=== PATIENT | female | born 1985 | race Caucasian/White ===

== ENCOUNTER 2019-09-23 09:14 | Outpatient (RCR) | payer OTHER, SELFPAY ==
[2019-09-23 10:50] LABS: Hematocrit 27.7 % (37.0-47.0); Hemoglobin 9.7 g/dL (12.0-15.0)
[2019-09-23 11:04] LABS: Glucose 1 Hour PP 50gm Dose 93 mg/dL
[2019-09-26 13:34] LABS: Rapid Plasma Reagin Non-Reactive (NonReactive)
[2019-09-26] MEDS: RHO(D) IMMUNE GLOBULIN 300 MCG SYRINGE IM (16:38)
== END 2019-12-22 23:59 | disposition home or self-care (01) ==
LOC: ANHLAB 09:14
PROVIDERS: Visit Provider Obstetrics & Gynecology
DX: Z36.89 Encounter for other specified antenatal screening (principal); Z29.13 Encounter for prophylactic Rho(D) immune globulin; O36.0990 Maternal care for other rhesus isoimmunization, unspecified trimester, not applicable or unspecified; Z3A.00 Weeks of gestation of pregnancy not specified
CPT/HCPCS: 36415; 82947; 85014; 85018; 85461; 86592; 90384; 96372; J2790

== ENCOUNTER 2019-10-07 11:24 | Outpatient (CLI) | payer OTHER, SELFPAY ==
[2019-10-07 12:16] LABS: Alanine Aminotransferase 10 U/L (4-35); Albumin Level 3.8 g/dL (3.5-5.1); Alkaline Phosphatase 193 U/L (38-126); Aspartate Amino Transferase 22 U/L (14-36); Bilirubin,Total 0.2 mg/dL (0.2-1.3); Blood Urea Nitrogen 16 mg/dL (7-17); Carbon Dioxide 20 mmol/L (22-30); Chloride 109 mmol/L (98-107); Estimated Glomerular Filt Rate > 60; Glucose 79 mg/dL (65-105); Sodium 137 mmol/L (137-145)
[2019-10-07 12:50] LABS: HIV 1/2 Ab P24 Ag Result Negative (Negative)
== END 2019-10-07 11:25 | disposition home or self-care (01) ==
LOC: ANHLAB 11:27
PROVIDERS: Visit Provider Obstetrics & Gynecology
DX: Z36.89 Encounter for other specified antenatal screening (principal); Z3A.00 Weeks of gestation of pregnancy not specified
CPT/HCPCS: 36415; 80053; 86703; G0432

== ENCOUNTER 2019-10-19 17:23 | Observation (INO) | payer OTHER, SELFPAY ==
[2019-10-19 17:45] VITALS: BP 105/65; PULSE 94
--- NOTE | 2019-10-19 17:49 | OBADM ---
This patient, Paulette Selby, admitted to the OB room OB Post 115 for observation. Patient/family oriented to hospital policies and general routines including ID bracelet, bed and alarms, visiting hours, pain management, procedures, bathroom and other care routines, personal items, smoking policy, room service/diet, and visiting hours. Patient/Family are encouraged to report perceived risks to care and to ask questions if they do not understand what they are told or what they should do.
[2019-10-19 18:00] VITALS: BP 110/58; PULSE 78
[2019-10-19 18:03] LABS: Basophils Percent Auto 0.3 % (0.2-1.2); Eosinophils Absolute Auto 0.1 K/mm3 (0-0.3); Eosinophils Percent Auto 0.4 % (0-4.4); Hematocrit 28.4 % (37.0-47.0); Hemoglobin 9.8 g/dL (12.0-15.0); Immature Granulocyte Percent A 0.8 % (0-0.5); Lymphocytes Absolute Auto 1.88 K/mm3 (0.9-3.2); Lymphocytes Percent Auto 15.8 % (18.3-44.2); Mean Corpuscular HGB Conc 34.5 g/dl (32-36); Mean Corpuscular Hemoglobin 30.9 pg (26-34); Mean Corpuscular Volume 89.6 fl (80-100); Monocytes Absolute Auto 0.7 K/mm3 (0.1-0.6); Monocytes Percent Auto 6.2 % (2.6-8.5); Neutrophils Absolute Auto 9.1 K/mm3 (1.3-6.7); Neutrophils Percent Auto 76.5 % (45.5-73.1); Platelet Count Result 268 k/mm3 (150-375); Red Blood Count 3.17 M/mm3 (4.2-5.4); Red Cell Distribution Width 14.2 % (11.5-14.5); White Blood Count 11.9 K/mm3 (4.5-10.0)
[2019-10-19 18:15] VITALS: BP 103/61; PULSE 86
[2019-10-19 18:16] VITALS: BMI 22.6
[2019-10-19 18:18] LABS: Alanine Aminotransferase 10 U/L (4-35); Albumin Level 3.5 g/dL (3.5-5.1); Alkaline Phosphatase 240 U/L (38-126); Anion Gap 12.2 mmol/L (7-16); Aspartate Amino Transferase 18 U/L (14-36); Bilirubin,Total 0.4 mg/dL (0.2-1.3); Blood Urea Nitrogen 15 mg/dL (7-17); Calcium 8.8 mg/dL (8.4-10.2); Carbon Dioxide 14 mmol/L (22-30); Chloride 110 mmol/L (98-107); Estimated CRCL calculation 58 ml/min; Estimated Glomerular Filt Rate > 60; Glucose 113 mg/dL (65-105); Potassium 3.2 mmol/L (3.4-5.0); Sodium 133 mmol/L (137-145)
[2019-10-19 18:30] VITALS: BP 109/65; PULSE 76
[2019-10-19 18:40] LABS: Iron 48 ug/dL (37-170)
[2019-10-19 18:45] VITALS: BP 100/77; PULSE 89
[2019-10-19 18:49] LABS: Percent Iron Saturation 9 % (20-50)
[2019-10-19 19:00] VITALS: BP 103/66; PULSE 82
[2019-10-19 19:18] LABS: Ferritin 8.79 ng/mL (6.24-137)
--- NOTE | 2019-11-16 12:16 | PM.OBTRLD ---
OB - Triage/Final Diagnosis Evaluation Laboratory results: Laboratory Tests 10/19/19 10/19/19 10/19/19 17:53 17:53 17:53 WBC 11.9 H RBC 3.17 L Hgb 9.8 L Hct 28.4 L MCV 89.6 MCH 30.9 MCHC 34.5 RDW 14.2 Plt Count 268 MPV 10.0 Immature Gran % (Auto) 0.8 H Neut % (Auto) 76.5 H Lymph % (Auto) 15.8 L [place] % (Auto) 6.2 Eos % (Auto) 0.4 Baso % (Auto) 0.3 Lymph # (Auto) 1.88 [place] # (Auto) 0.7 H Eos # (Auto) 0.1 Baso # (Auto) 0.0 Abs Immat Gran (auto) 0.10 H Absolute Neuts (auto) 9.1 H Absolute Nucleated RBC 0.0 Nucleated RBC % 0.0 Sodium 133 L Potassium 3.2 L Chloride 110 H Carbon Dioxide 14 L Anion Gap 12.2 BUN 15 Creatinine 1.00 Estim Creat Clear Calc 58 Estimated GFR > 60 Glucose 113 H Calcium 8.8 Iron 48 TIBC 517 H % Saturation 9 L Ferritin 8.79 Total Bilirubin 0.4 AST 18 ALT 10 Alkaline Phosphatase 240 H Total Protein 7.0 Albumin 3.5 Final Diagnosis (1) False labor: Code(s): O47.9 - False labor, unspecified Status: Acute
== END 2019-10-19 19:33 | disposition home or self-care (01) ==
PROVIDERS: Admitting Provider Obstetrics & Gynecology; Visit Provider Obstetrics & Gynecology
DX: O47.9 False labor, unspecified (principal); Z3A.00 Weeks of gestation of pregnancy not specified
CPT/HCPCS: 36415; 80053; 82728; 83540; 83550; 85025; G0378; G0379

== ENCOUNTER 2019-10-31 14:41 | Outpatient (CLI) | payer OTHER, SELFPAY ==
--- NOTE | 2019-10-31 15:31 | PC.NURSE ---
1528- Spoke with Nicole Boone CNM. Patient ROMplus negative, reative NST with irregular contractions. Orders to discharge to home.
[2019-10-31 15:33] VITALS: BP 111/63; PULSE 88
== END 2019-10-31 16:30 | disposition home or self-care (01) ==
LOC: ANHOBOP 15:28 → ANHLDR 15:30
PROVIDERS: Visit Provider Obstetrics & Gynecology
DX: O42.90 Premature rupture of membranes, unspecified as to length of time between rupture and onset of labor, unspecified weeks of gestation (principal); Z3A.00 Weeks of gestation of pregnancy not specified
CPT/HCPCS: 59025; 84112; 99199

== ENCOUNTER 2019-11-03 16:46 | Outpatient (CLI) | payer OTHER, SELFPAY ==
[2019-11-03 17:42] LABS: Basophils Percent Auto 0.3 % (0.2-1.2); Eosinophils Percent Auto 0.4 % (0-4.4); Hematocrit 31.3 % (37.0-47.0); Hemoglobin 10.7 g/dL (12.0-15.0); Immature Granulocyte Absolute 0.07 K/mm3 (0.00-0.031); Immature Granulocyte Percent A 0.8 % (0-0.5); Lymphocytes Absolute Auto 1.76 K/mm3 (0.9-3.2); Lymphocytes Percent Auto 19.7 % (18.3-44.2); Mean Corpuscular HGB Conc 34.2 g/dl (32-36); Mean Corpuscular Hemoglobin 31.5 pg (26-34); Mean Corpuscular Volume 92.1 fl (80-100); Mean Platelet Volume 9.8 fl (7.4-10.4); Monocytes Absolute Auto 0.8 K/mm3 (0.1-0.6); Monocytes Percent Auto 9.3 % (2.6-8.5); Neutrophils Absolute Auto 6.2 K/mm3 (1.3-6.7); Neutrophils Percent Auto 69.5 % (45.5-73.1); Platelet Count Result 253 k/mm3 (150-375); Red Cell Distribution Width 15.1 % (11.5-14.5)
[2019-11-03 17:56] LABS: Alanine Aminotransferase 10 U/L (4-35); Albumin Level 3.5 g/dL (3.5-5.1); Alkaline Phosphatase 198 U/L (38-126); Anion Gap 9.7 mmol/L (7-16); Aspartate Amino Transferase 20 U/L (14-36); Bilirubin,Total < 0.1 mg/dL (0.2-1.3); Blood Urea Nitrogen 19 mg/dL (7-17); Carbon Dioxide 20 mmol/L (22-30); Chloride 109 mmol/L (98-107); Estimated Glomerular Filt Rate > 60; Glucose 74 mg/dL (65-105); Potassium 3.7 mmol/L (3.4-5.0); Sodium 135 mmol/L (137-145)
== END 2019-11-03 16:47 | disposition home or self-care (01) ==
PROVIDERS: Visit Provider Obstetrics & Gynecology
DX: Z34.93 Encounter for supervision of normal pregnancy, unspecified, third trimester (principal); Z3A.00 Weeks of gestation of pregnancy not specified
CPT/HCPCS: 36415; 80053; 85025; 86850; 86880; 86900; 86901; 86902

== ENCOUNTER 2019-11-04 10:40 | Inpatient (IN) | payer OTHER, SELFPAY ==
--- NOTE | 2019-10-31 16:36 | PC.NURSE ---
PATIENT STATES SHE IS A C/S ON 11/04/19--INFORMED PATIENT SHE IS NOT ON THE SCHEDULE AT THIS TIME. PATIENT STATES SHE HAS AN APPOINTMENT WITH DR MOORE ON THURSDAY AND WILL ASK ABOUT THE C/S INSTRUCTED PATIENT IF SHE IS A C/S ,SHE WILL NEED TO GET LABS DRAWN THE DAY BEFORE SURGERY. SHE CAN HAVE NOTHING BY MOUTH AFTER MIDNIGHT THE NIGHT BEFORE SURGERY AND SHE WILL NEED TO BE IN OB 2 HOURS BEFORE SURGERY. PATIENT VERBALIZED HER UNDERSTANDING
[2019-11-04] VITALS (57 sets, daily range): BP systolic 88–125; BP diastolic 54–101; PULSE 52–107; RESP 14–18; TEMP 36.3–36.7; O2SAT 98–100
--- NOTE | 2019-11-04 11:02 | LDADM ---
This patient, Paulette Selby, was admitted to Labor/Delivery/Recovery 120 on 11/04/19 at 10:40. Plans for labor, pain management and were discussed with patient. Patient/family oriented to hospital policies and general routines including ID bracelet, bed and alarms, visiting hours, pain management, procedures, bathroom and other care routines, personal items, smoking policy, room service/diet and guest tray routines, security routines, call light, and visiting hours. Patient/Family are encouraged to report perceived risks to care and to ask questions if they do not understand what they are told or what they should do. See OBIX for further documentation.
[2019-11-04] MEDS: LACTATED RINGERS 1,000 ML 125 ML IV CONT ×2 (11:11→12:06)
--- NOTE | 2019-11-04 11:21 | WPDANESEPPF ---
Anes - Initial Pre Proc Eval Procedure: Operation Date: 11/04/19 12:00 Proposed Procedures p Primary Section - Waldemar Real MD Date/Time: 11/04/19 11:21 Surgeon: Waldemar Real MD Pre Op Diagnosis: C Section Patient Data Age: 33 Gender: F Height: 5 ft 2 in Weight: 59.8 kg Last Vital Signs Pulse 76 11/04/19 11:16 BP 103/60 11/04/19 11:16 Pulse Ox 99 11/04/19 11:17 Allergies Allergy/AdvReac Type Severity Reaction Status Date / Time codeine Allergy Unknown Verified 01/17/15 11:46 ketorolac Allergy Unknown Verified 11/30/15 14:05 latex Allergy Unknown Verified 01/17/15 11:47 Penicillins Allergy Unknown Verified 01/17/15 11:46 Sulfa (Sulfonamide Allergy Unknown Verified 01/17/15 11:46 Antibiotics) tramadol Allergy Unknown Verified 11/30/15 14:05 Chloride Allergy Unknown Uncoded 08/31/14 18:46 COCONUT Allergy Unknown Uncoded 11/30/15 14:05 Home Medications Medication Instructions Recorded Confirmed Type Alive 1 tablet PO DAILY 10/19/19 10/19/19 History magnesium 400 mg PO DAILY 10/19/19 10/19/19 History potassium acetate 2 meq IV ONCE 10/19/19 10/19/19 History Patient hx anesthesia problems: none Family hx anesthesia problems: none PMFSH Past Medical History Medical History (Updated 11/04/19 @ 11:22 by Luis Bedoya MD) Anxiety Chronic back pain Smoker Spinal stenosis Family History Family History Father Hypertension Asthma Chronic obstructive pulmonary disease Sibling Leukemia Social History Social History Smoking packs per day: 0.5 Smoking cigarettes per day: 10.0 Years smoked: 10 Smoking pack-years: 5.00 Smoking status: Current every day smoker Alcohol intake: never Substance use: never Spiritual care concerns: No Anes - Eval Final PreProcedure Day of Procedure 11/04/19 11:21 Patient weight: normal Heart: regular rate and rhythm Lungs: clear to auscultation Airway: Mallampati scale class II Neurological: alert and oriented Last oral intake: >/= 8 hours ASA classification: III Emergent: no Anesthetic plan: proceed Anesthesia type and monitoring: regional spinal Informed Consent: The patient's anesthetic plan and its attendant risks and benefits were discussed with the patient/family/POA. Questions were solicited and answers provided to the satisfaction of the patient/family/POA.
[2019-11-04 12:03] LABS: Amphetamine Screen Urine Negative (Negative); Barbiturate Screen Urine Negative (Negative); Benzodiazepines Screen Urine Negative (Negative); Cannabinoid Screen Urine Positive (Negative); Cocaine Screen Urine Negative (Negative); Methadone Screen Urine Negative (Negative); Opiate Screen Urine Negative (Negative); Phencyclidine Screen Urine Negative (Negative)
[2019-11-04] MEDS: CLINDAMYCIN 900 MG/NS 50 ML 900 MG/50 ML PIGGYBACK 50 MG IVPB (12:06)
--- NOTE | 2019-11-04 12:08 | PM.IMHP ---
H&P: HPI History of Present Illness Date/Time: 11/04/19 12:08 Chief complaint: C Section Narrative: Paulette Selby is a 33 year old female Multiparous at 39 weeks who presents for elective primary delivery due to history of chronic back pain. She has no complaints. She reports good movement. She denies any loss of fluid, vaginal bleeding, contractions. She denies any headache, blurry vision, epigastric pain. She denies any chest pain or shortness of breath. Review of Systems Constitutional: Constitutional: Reports no additional constitutional complaints, Denies fatigue, Denies headache(s), Denies lethargy and Denies weakness Eyes: Eyes: Reports no additional eye complaints, Denies blurry vision and Denies photophobia ENT: Reports as per HPI, Denies headache(s) and Denies neck pain Cardiovascular: Cardiovascular: Denies chest pain, Denies diaphoresis, Denies leg edema, Denies palpitations and Denies dyspnea Respiratory: Respiratory: Denies hemoptysis, Denies dyspnea and Denies wheezing Gastrointestinal: Gastrointestinal: Denies abdominal pain, Denies melena, Denies bloating, Denies hematochezia, Denies nausea and Denies vomiting Genitourinary: Genitourinary: Reports no additional female genitourinary complaints Musculoskeletal: Musculoskeletal: Denies joint swelling, Denies neck pain, Denies numbness and Denies stiffness Neurologic: Denies Abnormal speech present, Denies confusion, Denies headache(s), Denies numbness and Denies weakness Psychiatric: Psychiatric: Denies anxiety, Denies confusion, Denies depression, Denies homicidal ideation and Denies suicidal ideation Endocrine: Endocrine: Denies fatigue and Denies palpitations Allergic/Immunologic: Allergic/Immunologic: Denies wheezing [facility] Past Medical History Medical History (Updated 11/04/19 @ 12:11 by Waldemar Real MD) Anxiety Chronic back pain Smoker Spinal stenosis Family History Family History Father Hypertension Asthma Chronic obstructive pulmonary disease Sibling Leukemia Social History Social History Smoking packs per day: 0.5 Smoking cigarettes per day: 10.0 Years smoked: 10 Smoking pack-years: 5.00 Smoking status: Current every day smoker Alcohol intake: never Substance use: never Spiritual care concerns: No Meds Home Medications and Allergies Home Medications Medication Instructions Recorded Confirmed Type Alive 1 tablet PO DAILY 10/19/19 10/19/19 History magnesium 400 mg PO DAILY 10/19/19 10/19/19 History potassium acetate 2 meq IV ONCE 10/19/19 10/19/19 History Allergies Allergy/AdvReac Type Severity Reaction Status Date / Time codeine Allergy Unknown Verified 01/17/15 11:46 ketorolac Allergy Unknown Verified 11/30/15 14:05 latex Allergy Unknown Verified 01/17/15 11:47 Penicillins Allergy Unknown Verified 01/17/15 11:46 Sulfa (Sulfonamide Allergy Unknown Verified 01/17/15 11:46 Antibiotics) tramadol Allergy Unknown Verified 11/30/15 14:05 Chloride Allergy Unknown Uncoded 08/31/14 18:46 COCONUT Allergy Unknown Uncoded 11/30/15 14:05 Vital Signs Vital Signs - 24 hr 11/04/19 10:57 11/04/19 11:02 11/04/19 11:07 Pulse Rate Blood Pressure Pulse Oximetry 99 99 99 11/04/19 11:12 11/04/19 11:16 11/04/19 11:17 Pulse Rate 76 Blood Pressure 103/60 Pulse Oximetry 98 99 11/04/19 11:22 11/04/19 11:30 Pulse Rate 74 Blood Pressure 113/74 Pulse Oximetry 98 Exam Const: General: healthy appearing, comfortable and no acute distress; No confusion Orientation/consciousness: No confusion Eyes: Direct Ophthalmoscopy: No photophobia Resp: Auscultation: clear to auscultation bilaterally, no rales, no rhonchi and no wheezes Cardio: Rate: regular rate Heart sounds: no click, no murmurs and no rubs GI: Inspection: non-distended GI P
[2019-11-04] MEDS: LACTATED RINGERS 250 ML 999 ML IVPB (12:09)
--- NOTE | 2019-11-04 12:53 | PM.PROC ---
Procedure Note - Detailed Date of procedure: 11/04/19 Pre-op diagnosis: C Section Term gestation, back pain Post-op diagnosis: same Procedure performed: low-transverse delivery Description of procedure: The patient was taken the operating room. She was prepped and draped in the dorsal supine position with leftward tilt after induction of spinal anesthetic. When anesthesia was found to be adequate a low-transverse skin incision was made and carried down to the level the fascia with the knife. The fascial incision was made at the midline with a scalpel. The fascial incision was extended laterally with Michael scissors. The fascia was tented upward superior and inferior with Swetha clamps. The rectus muscles were dissected off bluntly. The rectus muscles at the midline. The preperitoneal fat was dissected bluntly at the superior aspect of the separate the rectus muscles. The peritoneal cavity was entered bluntly in the same area. The peritoneal incision was extended superior and inferior with good visualization of bladder. Bladder blade was inserted. A low-transverse incision was made on the uterus with the scalpel. It was carried down the level of the amniotic cavity with a knife. The amniotic cavity bluntly. The uterine incision was made laterally with blunt traction. The was delivered. The cord was clamped and cut. The was handed off to waiting pediatric staff. Cord bloods were obtained. The placenta was removed manually. The uterus was exteriorized. Uterus cleared of all clots and debris. Uterus closed in 0 Vicryl in a running locked fashion. An imbricating layer of 0 Vicryl was also placed on the to bolster the closure. The uterus was returned to the abdomen. The gutters were cleared of all clots and debris. The fascia was closed 0 Vicryl in a running fashion. Subcutaneous tissue was irrigated and bleeding areas were cauterized. The skin was closed with subcuticular absorbable leonidas. The incision was covered with derma campbell. The patient tolerated the procedure well. She was taken recovery room stable condition. Sponge, lap, needle counts were correct x2. Anesthesia: spinal Surgeon: Waldemar Real MD Estimated blood loss (mL): 450 Drains: No Packing: No Pathology: none sent Complications: No immediate complications Condition: stable Disposition: floor Findings: Normal maternal anatomy. Average size with normal Apgars.
[2019-11-04] MEDS: LORATADINE 10 MG TABLET PO (13:21)
[2019-11-04] MEDS: diphenhydrAMINE HCl INJ 50 MG/ML VIAL 25 MG IV PUSH (13:21)
[2019-11-04] MEDS: OXYTOCIN 30 UNITS/NS 500 ML 30 UNITS/500 ML BAG 125 UNITS IV CONT (13:52)
--- NOTE | 2019-11-04 16:22 | PC.NURSE ---
DCFS called RN at 1421 to inform of an open case. Lonijose Lester will come to [facility] to discuss case with parents.
--- NOTE | 2019-11-04 16:38 | PCCCNOTE ---
Care Coordination. Pt. referred to CC for open DCFS case. 15:30 Received call from pt[facility]s [facility] case management specialist, Tamika Benavides, . She called in DCFS report on baby. DCFS income tax investigator, Ashleighcassi Lester, intake ID ([id number]) came out to see pt. Per RN, Vidya and Sameera, DCFS plans to take custody of baby at discharge. There was discussion of baby being discharged on Thursday or Thursday. Per [place] worker, there is a family in place (pt.'s brother and sister in law) to take , but they do live a few hours away. When baby is discharged, CC will call DCFS Hotline per DCFS instruction for worker to facilitate placement for . Tamika, [facility] case management specialist, also aware infant may discharge Thursday or Thursday. Per Tamika, pt. and FOB have not been complaint with their treatment plan. She reports FOB with history of meth use and mother with benzo's during . Mother has been evasive with giving UDS for testing throughout or for DCFS. Tamika also reports that pt. didn't start care until 34 weeks. Will follow
[2019-11-04] MEDS: DOCUSATE SODIUM 100 MG CAPSULE PO (17:44)
[2019-11-04] MEDS: IBUPROFEN 600 MG TABLET PO ×2 (17:45→22:56)
[2019-11-04] MEDS: DEXTROSE 5%/0.45% SOD CHL 1,000 ML 125 ML IV CONT (18:11)
--- NOTE | 2019-11-04 19:01 | PC.NURSE ---
1550 pt admitted to room 285 per stretcher from labor and delivery after primary delivery of viable male infant at [address] Real. Mother is a and is bottle feeding . FOB present. Pt's VSS and assessment WNL. Pt oriented to room. She appears to be in stable condition.
[2019-11-05 04:58] LABS: Basophils Percent Auto 0.2 % (0.2-1.2); Hematocrit 30.8 % (37.0-47.0); Hemoglobin 10.2 g/dL (12.0-15.0); Immature Granulocyte Absolute 0.12 K/mm3 (0.00-0.031); Immature Granulocyte Percent A 0.7 % (0-0.5); Lymphocytes Absolute Auto 1.83 K/mm3 (0.9-3.2); Mean Corpuscular HGB Conc 33.1 g/dl (32-36); Mean Corpuscular Volume 93.6 fl (80-100); Mean Platelet Volume 10.4 fl (7.4-10.4); Monocytes Absolute Auto 1.2 K/mm3 (0.1-0.6); Monocytes Percent Auto 6.5 % (2.6-8.5); Neutrophils Percent Auto 82.6 % (45.5-73.1); Platelet Count Result 243 k/mm3 (150-375); Red Blood Count 3.29 M/mm3 (4.2-5.4); White Blood Count 18.2 K/mm3 (4.5-10.0)
[2019-11-05] MEDS: IBUPROFEN 600 MG TABLET PO ×3 (05:56→20:06)
[2019-11-05] MEDS: SIMETHICONE 80 MG TAB.CHEW PO ×6 (05:58→23:44)
--- NOTE | 2019-11-05 07:16 | WPDANLDPN2 ---
Anes-Prog Note L&D Date/Time: 11/05/19 07:16 Comfortable throughout: section Neuraxial method: spinal Epidural/Spinal procedure site: clean & non-tender Neuro status: Neuro function grossly intact. Cardiovascular status: normal Respiratory status: normal Airway patency: baseline Mental status: baseline Post-Op hydration status: normal Vital Signs: Last Vital Signs Temp 36.3 C L 11/04/19 22:35 Pulse 53 L 11/04/19 22:35 Resp 18 11/04/19 22:35 BP 102/54 L 11/04/19 22:35 Pulse Ox 100 11/04/19 22:35 I/O: Intake & Output 11/04/19 11/04/19 11/05/19 15:59 23:59 07:59 Intake Total 2050 240 300 Output Total 235 1350 1150 Balance [id number] -[id number] -[id number] Post-procedural complaints: none Patient feedback: Patient satisfied with anesthetic care.
--- NOTE | 2019-11-05 07:16 | WPDANLDNPN2 ---
Anes-Prog Note L&D-Neuraxial Date/Time: 11/05/19 07:16 Neuraxial medications: intrathecal PF morphine Opiod-related complaints: none Patient feedback: Patient satisfied with post-operative pain management.
--- NOTE | 2019-11-05 07:45 | PC.NURSE ---
PT introductions made and plan of care discussed per post op c section, pain management, bottle feeding, daily care activities. PT verbalized understanding of such care.
--- NOTE | 2019-11-05 08:52 | P.PNOB_ITS ---
OB - PN: Subj Subjective Date/time seen: 11/05/19 08:52 Patient comments: incisional pain [place] baby status: doing well feeding status: exclusively bottle feeding OB - PN: Obj Data Labs CBC & Chem 7: 11/05/19 04:49 Labs: Laboratory Results - last 24 hr 11/04/19 11/05/19 11:34 04:49 WBC 18.2 H RBC 3.29 L Hgb 10.2 L Hct 30.8 L MCV 93.6 MCH 31.0 MCHC 33.1 RDW 15.0 H Plt Count 243 MPV 10.4 Immature Gran % (Auto) 0.7 H Neut % (Auto) 82.6 H Lymph % (Auto) 10.0 L [place] % (Auto) 6.5 Eos % (Auto) 0.0 Baso % (Auto) 0.2 Lymph # (Auto) 1.83 [place] # (Auto) 1.2 H Eos # (Auto) 0.0 Baso # (Auto) 0.0 Abs Immat Gran (auto) 0.12 H Absolute Neuts (auto) 15.0 H Absolute Nucleated RBC 0.0 Nucleated RBC % 0.0 Urine Opiates Screen Negative Urine Methadone Screen Negative Ur Barbiturates Screen Negative Ur Phencyclidine Scrn Negative Ur Amphetamine Screen Negative U Benzodiazepines Scrn Negative Urine Cocaine Screen Negative U Cannabinoids Screen Positive A OB - PN A/P Plan day: 1 Plan: routine care Time Spent With Patient Time: Total time spent is greater than 50% in coordination of care (as documented) at patient's floor/unit and/or counseling patient: Exam Const: Other: tearful due to incisional pain, time for medication Resp: Effort & Inspection: normal respiratory effort Psych: Appearance: grossly normal Affect: normal affect Attitude: cooperative Judgement: Good judgement present (Psych)
[2019-11-05 09:40] VITALS: BP 114/60; PULSE 67; RESP 18; TEMP 37.1; O2SAT 100
[2019-11-05] MEDS: DOCUSATE SODIUM 100 MG CAPSULE PO ×2 (09:40→17:21)
[2019-11-05] MEDS: NICOTINE (*PBKC) 14 MG PATCH 1 PATCH TRANSDERM (09:42)
[2019-11-05] MEDS: TETANUS,DIPHTHERIA,AC PERTUSSIS ADULT (0.5 ML) BOOSTRIX IM (17:23)
[2019-11-05 18:41] VITALS: BP 126/73; PULSE 73; RESP 18; TEMP 36.5; O2SAT 99
--- NOTE | 2019-11-05 20:14 | PC.NURSE ---
2009 on 11/05/19. Mother states her significant other is having visitation with her son and plans to be her this evening. Paulette asked me if he is permitted to come up through the evening and I said yes.
[2019-11-06] MEDS: SIMETHICONE 80 MG TAB.CHEW PO ×5 (03:56→23:17)
[2019-11-06] MEDS: IBUPROFEN 600 MG TABLET PO ×3 (03:56→18:31)
[2019-11-06] MEDS: DOCUSATE SODIUM 100 MG CAPSULE PO ×2 (08:27→15:56)
[2019-11-06] MEDS: NICOTINE (*PBKC) 14 MG PATCH 1 PATCH TRANSDERM (08:29)
[2019-11-06 08:30] VITALS: BP 115/63; PULSE 85; RESP 18; TEMP 36.8; O2SAT 100
--- NOTE | 2019-11-06 08:30 | PC.NURSE ---
Pt introductions made and plan of care discussed per post op c section, pain management, daily care activities, bottle feeding. PT verbalized understanding of such care.
--- NOTE | 2019-11-06 09:16 | P.PNOB_ITS ---
OB - PN: Subj Subjective Date/time seen: 11/06/19 09:16 Patient comments: no complaints baby status: doing well [place] feeding status: exclusively bottle feeding OB - PN: Obj Data Labs CBC & Chem 7: 11/05/19 04:49 OB - PN A/P Plan day: 2 Plan: routine care Time Spent With Patient Time: Total time spent is greater than 50% in coordination of care (as documented) at patient's floor/unit and/or counseling patient: Exam Const: General: comfortable Resp: Effort & Inspection: normal respiratory effort Psych: Appearance: grossly normal Affect: normal affect Attitude: cooperative Judgement: Good judgement present (Psych)
[2019-11-06 18:34] VITALS: BP 138/76; PULSE 78; RESP 18; TEMP 36.6
--- NOTE | 2019-11-06 23:16 | PC.NURSE ---
2100 11/06/2019 Patient viewed the discharge video Mother & Baby Care, The First Two Weeks . Patient was given the opportunity and encouraged to ask questions. Patient verbalized understanding of information shared and has been given the mother/baby guide for home reference.
[2019-11-07] MEDS: IBUPROFEN 600 MG TABLET PO ×2 (02:44→09:08)
[2019-11-07] MEDS: SIMETHICONE 80 MG TAB.CHEW PO ×2 (02:45→07:36)
[2019-11-07] MEDS: DOCUSATE SODIUM 100 MG CAPSULE PO (07:36)
[2019-11-07] MEDS: NICOTINE (*PBKC) 14 MG PATCH 1 PATCH TRANSDERM (07:37)
--- NOTE | 2019-11-07 07:48 | PM.OBPNVD ---
OB - PN: Subj Subjective Date/time seen: 11/07/19 07:48 Patient comments: no complaints, pain well controlled, incisional pain, tolerating diet and flatus present OB - PN: Obj Data Labs CBC & Chem 7: 11/05/19 04:49 OB - PN A/P Plan day: 3 Plan: routine care, discharge home and other Comments: Incision check in one week. Given precautions Time Spent With Patient Time: Total time spent is greater than 50% in coordination of care (as documented) at patient's floor/unit and/or counseling patient: Exam Const: General: comfortable, no acute distress and alert Resp: Effort & Inspection: normal respiratory effort Auscultation: no crackles, no rales and no rhonchi Cardio: Rate: regular rate Heart sounds: no click, no murmurs and no rubs GI: Inspection: non-distended GI Palp: No Tenderness to palpation present (GI) Auscultation: normal bowel sounds Other: Incision - CDI Extrem: General: normal to inspection, no pedal edema and no calf tenderness
--- NOTE | 2019-11-07 07:48 | PM.OBDSVD ---
DS: Admitting Diagnosis Admitting Diagnosis Admitting Diagnosis: Encounter for supervision of normal , unspecified, unspecified trimester DS: Discharge Diagnosis Discharge Diagnosis (1) Delivery by elective section: Code(s): O82 - Encounter for delivery without indication Status: Acute (2) Term : Code(s): Z34.90 - Encounter for supervision of normal , unspecified, unspecified trimester Status: Acute OB - DS: Summary OB Procedures : None OB Procedures Intrapartum: OB Procedures: : None Peripartum Data Delivery Method: Section Procedures: Procedures Operation Date: 11/04/19 12:00 <No data on this case meets the specified criteria> complications: none Time Spent with Patient Time attestation: Total time spent providing and/or coordinating discharge services: Discharge Plan Discharge Discharging Clinician: Waldemar Real Patient Disposition: Home, Self-Care Activity: pelvic rest Diet: regular Patient Instructions: Antibiotic Form Stand Alone Forms: General Discharge Information Follow-up/Referrals: Waldemar Real MD [Physician] - Discharge Medications: New hydrocodone-acetaminophen 5-325 mg tablet 1 - 2 tablet PO Q4H PRN (Reason: pain) Qty: 25 RF: 0 Continued potassium acetate 2 mEq/mL Solution 2 meq IV ONCE RF: 0 magnesium 250 mg Tablet 400 mg PO DAILY RF: 0 Alive 400 mcg- 25 mg Tablet,Chewable 1 tablet PO DAILY RF: 0 Date of admission: 11/04/19 10:40 Primary Care Provider: PHYSICIAN NOT ON STAFF,NONSTAFF Admitting Provider: Waldemar Real Attending physician on admission: Waldemar Real
[2019-11-07 07:54] VITALS: PULSE 76; RESP 19
[2019-11-07 08:04] VITALS: BP 109/74; PULSE 76; RESP 19; TEMP 36.7; O2SAT 100
--- NOTE | 2019-11-07 12:50 | PC.NURSE ---
Patient discharged home, instructions given and all questions answered.
--- NOTE | 2019-11-07 15:13 | PCCCNOTE ---
Care Coordination. Met with [facility] casino investigator, Ashleigh Lester, child welfare caseworker from [employer], and pt. at bedside. Infant will be released to [facility] care and child welfare caseworker will transport baby to family that has pt.'s older child. Work ID's copied for both workers and placed on pt.'s chart.
== END 2019-11-07 12:50 | disposition home or self-care (01) | DRG 540 ==
LOC: ANHLDR 10:43 → ANHOB2 16:05
PROVIDERS: Admitting Provider Obstetrics & Gynecology; Visit Provider Obstetrics & Gynecology
PROC: 10D00Z1 Extraction of Products of Conception, Low, Open Approach (ICD-10-PCS; CPT 59514; principal; 2019-11-04 12:00)
DX: O69.1XX0 Labor and delivery complicated by cord around neck, with compression, not applicable or unspecified (principal); Z37.0 Single live birth; Z3A.39 39 weeks gestation of pregnancy; O26.893 Other specified pregnancy related conditions, third trimester; M54.5 Low back pain; G89.29 Other chronic pain; O99.334 Smoking (tobacco) complicating childbirth; F17.210 Nicotine dependence, cigarettes, uncomplicated
CPT/HCPCS: 36415; 80307; 85025; 90715; A9270; J0131; J1100; J1200; J2274; J2370; J2405; J2590; J7120

== ENCOUNTER 2020-02-14 14:43 | Emergency (ER) | payer OTHER, SELFPAY | END 2020-02-14 15:00 | disposition left against medical advice (07) | LOC: ANHED 16:14 | DX: Z53.21 Procedure and treatment not carried out due to patient leaving prior to being seen by health care provider (principal) | CPT/HCPCS: 99199 ==

== ENCOUNTER 2020-10-27 15:07 | Emergency (ER) | payer OTHER, SELFPAY ==
[2020-10-27 15:22] VITALS: BP 132/67; PULSE 107; RESP 20; TEMP 36.6; O2SAT 100
--- NOTE | 2020-10-27 16:45 | ED.DENTAL ---
HPI - Dental/Oral General Chief complaint: Dental/Oral Stated complaint: tooth abscess Time Seen by Provider: 10/27/20 15:33 Source: patient and RN notes reviewed Mode of arrival: ambulatory Limitations: no limitations History of Present Illness HPI Narrative: Patient is a 34-year-old female who presents to emergency department for evaluation of right upper dental pain for the last several days radiating to the ear and neck with history of decay has follow-up with clinic denies fever chills nausea vomiting or other complaints presents uncomfortable denies distress is taking medications with some improvement Related Data Home Medications Medication Instructions Recorded Confirmed magnesium 400 mg PO DAILY 10/19/19 10/27/20 Allergies Allergy/AdvReac Type Severity Reaction Status Date / Time codeine Allergy Unknown Swelling Verified 10/27/20 15:25 ketorolac Allergy Unknown Nausea Verified 10/27/20 15:25 latex Allergy Unknown Hives Verified 10/27/20 15:25 Penicillins Allergy Unknown Swelling Verified 10/27/20 15:25 Sulfa (Sulfonamide Allergy Unknown Unknown Verified 10/27/20 15:25 Antibiotics) tramadol Allergy Unknown Nausea Verified 10/27/20 15:25 Chloride Allergy Unknown Unknown Uncoded 10/27/20 15:25 COCONUT Allergy Unknown Unknown Uncoded 10/27/20 15:25 Review of Systems Review of Systems: All systems reviewed & are unremarkable except as noted in HPI and below PMFSH Past Medical History Medical History Anxiety Chronic back pain Smoker Spinal stenosis Family History Family History Father Hypertension Asthma Chronic obstructive pulmonary disease Sibling Leukemia Social History Social History Smoking packs per day: 0.5 Smoking cigarettes per day: 10.0 Years smoked: 10 Smoking pack-years: 5.00 Smoking status: Current every day smoker Alcohol intake: never Substance use: never Gender identity (if verbalized by the patient): Female Spiritual care concerns: No Exam Narrative: GENERAL: Well-appearing, well-nourished, and in no acute distress. HEAD: Normocephalic, atraumatic. EYES: PERRLA and EOMI. ENT: Nares clear, no rhinorrhea or epistaxis. Mucous membranes moist. Oropharynx without tonsillar hypertrophy exudate or other lesions. Right upper dental abscess floor the mouth is soft no other abnormalities noted uvula midline no trismus or drooling NECK: Supple. No adenopathy or masses. CHEST: Clear to auscultation. No respiratory distress. No wheezes rales or rhonchi HEART: Regular rate and rhythm. No murmur heard. EXTREMITIES: Normal range of motion. No edema. SKIN: Warm, dry, no rash. NEURO: No focal deficits. Alert and oriented x3. Cranial nerves II through XII grossly intact PSYCH: Normal mood and affect. Course Course Emergency Course: Patient in the room with likely early dental abscess will be treated medically had I&D in the emergency department felt appropriate for outpatient reevaluation Vital Signs Vital signs: Vital Signs Temperature 97.8 F 10/27/20 15:22 Pulse Rate 107 H 10/27/20 15:22 Respiratory Rate 20 10/27/20 15:22 Blood Pressure 132/67 10/27/20 15:22 Pulse Oximetry 100 10/27/20 15:22 Temperature 97.8 F 10/27/20 15:22 Pulse Rate 107 H 10/27/20 15:22 Respiratory Rate 20 10/27/20 15:22 Blood Pressure 132/67 10/27/20 15:22 Pulse Oximetry 100 10/27/20 15:22 Procedures Other Procedure Procedure 1: Other Procedure: Single straight incision with 18-gauge needle in the right upper gumline for dental abscess minimal drainage noted blood and small amount of pus MDM - Dental/Oral MDM Narrative Medical decision making narrative: Patients pain and complaint coupled with physical findings are consistent with dentalgia. There are no focal signs of space
[2020-10-27 17:04] VITALS: BP 124/85; PULSE 65; RESP 16; TEMP 36.1; O2SAT 100
== END 2020-10-27 17:04 | disposition home or self-care (01) ==
PROVIDERS: Emergency Provider Emergency Medicine
DX: K04.7 Periapical abscess without sinus (principal); F17.210 Nicotine dependence, cigarettes, uncomplicated
CPT/HCPCS: 41800; 99283